=== PATIENT | female | born 1945 | race Caucasian/White ===

== ENCOUNTER 2022-05-02 10:42 | Emergency (ER) | payer MEDICARE, OTHER ==
[2022-05-02 10:49] VITALS: BP 150/84
--- NOTE | 2022-05-02 11:50 | ED Physician Documentation ---
PD HPI LOWER EXT INJURY - Stated complaint Stated Complaint: LT FOOT PX - Chief complaint Chief Complaint: Ext Problem - History obtained from History obtained from: Patient - Additional information Additional information: Pt comes to the ED with CC of sunburn on the dorsum of her L foot, now with "blisters". She states the sunburn happened 2 days ago, and she noticed the blisters yesterday. Today there seem to be more. No fevers or chills. Redness has not gotten more intense. She does notice it a little more on the medial aspect of her foot. No other complaints at this time. Review of Systems Ten Systems: 10 systems reviewed and negative Constitutional: reports: Reviewed and negative Eyes: reports: Reviewed and negative Ears: reports: Reviewed and negative Nose: reports: Reviewed and negative Throat: reports: Reviewed and negative Cardiac: reports: Reviewed and negative Respiratory: reports: Reviewed and negative GI: reports: Reviewed and negative : reports: Reviewed and negative Skin: reports: Rash, Lesions Musculoskeletal: reports: Reviewed and negative Neurologic: reports: Reviewed and negative Psychiatric: reports: Reviewed and negative Endocrine: reports: Reviewed and negative Immunocompromised: reports: Reviewed and negative PD PAST MEDICAL HISTORY - Present Medications Home Medications: Ambulatory Orders Medication Instructions Recorded Confirmed Sulfamethox/Trimeth 800/160 1 each PO BID #14 tablet 05/02/22 [Bactrim Ds 800/160] - Allergies Allergies/Adverse Reactions: Allergies Allergy/AdvReac Type Severity Reaction Status Date / Time Narcotics AdvReac Emesis Uncoded 05/02/22 10:49 PD ED PE NORMAL - Vitals Vital signs reviewed: Yes - General General: Alert and oriented X 3, No acute distress, Well developed/nourished - HEENT HEENT: Atraumatic, PERRL, EOMI, Moist mucous membranes - Neck Neck: Thyroid normal - Cardiac Cardiac: Strong equal pulses - Respiratory Respiratory: No respiratory distress - Derm Derm: Warm and dry, Other (very faint erythema L foot medial dorsum, with 2 small clusters of several pustules. One larger (1 cm diam) popped bulla. No induration, fluctuance, or edema. No streaking. Minimal tenderness.) - Extremities Extremities: No deformity - Neuro Neuro: Alert and oriented X 3 - Psych Psych: Normal mood, Normal affect Results - Vitals Vitals: Oxygen O2 Source Room air PD MEDICAL DECISION MAKING - ED course Complexity details: considered differential, d/w patient ED course: I d/w pt that the area does not look distinctly infected. She does have definite pustules over the dorsum of her foot, and if this pustular outbreak worsens, she may need antibiotic treatment, but I have discussed with her that this is not indicated now. I have outlined the signs of infection with her, and have given her a prescription for abx to be filled only if these signs develop. We have discussed the usual indications for return. Departure - Departure Disposition: 01 Home, Self Care Clinical Impression: Pustule, Sunburn, second degree Condition: Stable Instructions: ED Burn D 2nd Follow-Up: Chicho Galvez MD [Physician No Access] - Prescriptions: Sulfamethox/Trimeth 800/160 [Bactrim Ds 800/160] 1 each PO BID #14 tablet Comments: At this point in time, you have 1 blister over the sunburn area that appears to have drained, as expected. However, the tiny bumps that are left appear to be pustules, not blisters, which contain little bits of pus like pimples. There is some mild redness and a small area around this, which could be due to the sunburn. It does not appear distinctly infected, and the tissue is very soft and is not swollen, both of which Argue against the possibility of infection. However, given that you have recently had a hip replacement, we will give you a prescription for antibiotics just in case it does seem that the redness Is spreading or that the area is becoming swollen and firm. If you notice these developments, you should get the antibiotics filled and begin taking them. Otherwise, you may try hot Salt water soaks which will encourage expression of pus from the tiny, pimple-like lesions. Please follow-up with your orthopedist as planned. Some recommendations for more local primary care physicians have been given above. Discharge Date/Time: 05/02/22 11:59
== END 2022-05-02 11:59 | disposition home or self-care (01) ==
LOC: ED 10:42
DX: L08.9 Local infection of the skin and subcutaneous tissue, unspecified (principal); L55.1 Sunburn of second degree
CPT/HCPCS: 99282; 99283

== ENCOUNTER 2022-07-30 22:00 | Outpatient (CLI) | payer MEDICARE, OTHER | END 2022-07-30 22:01 | disposition critical access hospital (66) | LOC: EMS 22:00 | DX: R53.1 Weakness (principal); R42 Dizziness and giddiness; F41.9 Anxiety disorder, unspecified | CPT/HCPCS: A0425; A0429 ==

== ENCOUNTER 2022-07-30 22:31 | Emergency (ER) | payer MEDICARE, OTHER ==
--- OUTSIDE RECORDS SUMMARY | 2022-07-30 22:37 | EXTERNAL MEDICAL SUMMARY RPT | Continuity of Care Document ---
:1945 Author Organization [facility] Address [address] [place] [address] Phone Allergies No information. Encounters No information. Functional Status No information. Immunizations No information. Medications date description facility +0000 atorvastatin [facility] [place] +0000 atorvastatin [facility] [place] Problems No information. Procedures date description facility +0000 Visit Code Hold [facility] [place] Results/Labs No information. Social History date description facility +0000 Never smoker [facility] [place] Vital Signs date measurement value units +0000 BMI BMI 22.76 kg/m2 [id number]+0000 BP_diastolic BP_diastolic 71 mm[H g] [id number]+0000 BP_systolic BP_systolic 135 mm[Hg] [id number]+0000 heart_rate heart_rate 58 /min [id number]+0000 height_metric height_metric 160.02 cm [id number]+0000 height_standard height_standard 63 in [id number]+0000 respiration_rate respiration_rate 16 /min [id number]+0000 temperature_metric temperature_metric 36.22 C [id number]+0000 temperature_standard temperature_standard 9 7.2 F [id number]+0000 weight_metric weight_metric 58.06 kg [id number]+0000 weight_standard weight_standard 128 lb
[2022-07-30 23:17] LABS: BASOPHILS % (AUTO) 0.7 %; EOSINOPHILS # (AUTO) 0.1 10^3/uL (0.0-0.7); EOSINOPHILS % (AUTO) 2.2 %; HCT - HEMATOCRIT 38.7 % (37.0-47.0); HGB - HEMOGLOBIN 12.6 g/dL (12.0-16.0); LYMPHOCYTES # (AUTO) 1.3 10^3/uL (1.5-3.5); LYMPHOCYTES % (AUTO) 21.7 %; MEAN CORPUSCULAR HGB CONC 32.6 g/dL (32.0-36.0); MEAN CORPUSCULAR VOLUME 92.1 fL (81.0-99.0); MEAN PLATELET VOLUME 11.3 fL (7.9-10.8); MONOCYTES # (AUTO) 0.5 10^3/uL (0.0-1.0); MONOCYTES % (AUTO) 8.3 %; NEUTROPHILS # (AUTO) 3.9 10^3/uL (1.5-6.6); NEUTROPHILS % (AUTO) 66.9 %; PLT - PLATELET COUNT 251 10^3/uL (130-450); WHITE BLOOD COUNT 5.9 x10^3/uL (4.8-10.8)
[2022-07-30 23:34] LABS: ALBUMIN 3.8 g/dL (3.2-5.5); ALBUMIN/GLOBULIN RATIO 1.5 (1.0-2.2); BILIRUBIN,TOTAL 0.5 mg/dL (0.2-1.0); CALCIUM 9.1 mg/dL (8.5-10.3); CREATININE 0.8 mg/dL (0.4-1.0); POTASSIUM 3.7 mmol/L (3.5-5.0); TOTAL PROTEIN 6.4 g/dL (6.7-8.2)
--- NOTE | 2022-07-30 23:54 | XRAY Report ---
PROCEDURE: Chest 1 View X-Ray INDICATIONS: Chest pain TECHNIQUE: One view of the chest was acquired. COMPARISON: None. FINDINGS: Surgical changes and devices: Postsurgical changes are demonstrated in the lower cervical spine. Lungs and pleura: No pleural effusions or pneumothorax. Lungs are clear. Mediastinum: Mediastinal contours appear normal. Heart size is normal. Bones and chest wall: No suspicious bony lesions. Overlying soft tissues appear unremarkable. IMPRESSION: 1. No acute cardiopulmonary disease. Reviewed by: Mykel Mujica MD on 07/30/2022 11:52 PM PDT Approved by: Mykel Mujica MD on 07/30/2022 11:52 PM PDT Station ID: [id number]
--- NOTE | 2022-07-31 00:10 | ED Physician Documentation ---
History of Present Illness - Stated complaint Stated Complaint: HIGH HEART RATE, DIZZY - Chief complaint Chief Complaint: Cardiac - History obtained from History obtained from: Patient - History of Present Illness Timing: Enter time (20:30) Pain level max: 0 Pain level now: 0 Improved by: no ameliorating factors Worsened by: no exacerbating factors - Additonal information Additional information: c/o sudden onset rapid palpitations at approximately 8:30 PM tonight while at home in bed, awake and reading. Denies h/o similar symptoms. Palpitations were associated with dizziness (but does not describe a vertigo component) and generalized weakness. Did not feel like she was going to pass out. Denies chest pain, dyspnea. She feels much improved by the time of this H+P. Review of Systems Constitutional: reports: Reviewed and negative Cardiac: reports: Palpitations. denies: Chest pain / pressure Respiratory: denies: Dyspnea, Cough GI: reports: Reviewed and negative Neurologic: reports: Generalized weakness. denies: Focal weakness, Numbness, Headache PD PAST MEDICAL HISTORY - Past Medical History Past Medical History: Yes Psych: Anxiety, Panic attacks - Past Surgical History Past Surgical History: Yes Ortho: Hip replacement - Present Medications Home Medications: Ambulatory Orders Medication Instructions Recorded Confirmed Sulfamethox/Trimeth 800/160 1 each PO BID #14 tablet 05/02/22 [Bactrim Ds 800/160] - Allergies Allergies/Adverse Reactions: Allergies Allergy/AdvReac Type Severity Reaction Status Date / Time Narcotics AdvReac Emesis Uncoded 07/30/22 22:38 - Social History Does the pt smoke?: No Smoking Status: Never smoker PD ED PE NORMAL - Vitals Vital signs reviewed: Yes - General General: Alert and oriented X 3, No acute distress, Well developed/nourished - Cardiac Cardiac: RRR, No murmur - Respiratory Respiratory: No respiratory distress, Clear bilaterally - Abdomen Abdomen: Soft, Non tender - Derm Derm: Normal color, Warm and dry - Extremities Extremities: No edema Results - Vitals Vitals: Oxygen O2 Source Room air - EKG (time done) No standard instances Rate: Rate (enter#) (77) Rhythm: NSR Elk: Normal Intervals: Normal DC Ischemia: Normal ST segments - Labs Labs: Laboratory Tests 07/30/22 07/30/22 07/30/22 23:06 23:06 23:06 WBC 5.9 RBC 4.20 Hgb 12.6 Hct 38.7 MCV 92.1 MCH 30.0 MCHC 32.6 RDW 14.0 Plt Count 251 MPV 11.3 H Neut # (Auto) 3.9 Lymph # (Auto) 1.3 L [place] # (Auto) 0.5 Eos # (Auto) 0.1 Baso # (Auto) 0.0 Absolute Nucleated RBC 0.00 Nucleated RBC % 0.0 Sodium 138 Potassium 3.7 Chloride 104 Carbon Dioxide 27 Anion Gap 7.0 BUN 32 H Creatinine 0.8 Estimated GFR (MDRD) 70 L Glucose 156 H Calcium 9.1 Total Bilirubin 0.5 AST 21 ALT 17 Alkaline Phosphatase 68 Troponin I High Sens 6.1 Total Protein 6.4 L Albumin 3.8 Globulin 2.6 Albumin/Globulin Ratio 1.5 Lipase 37 - Rads (name of study) chest xray Radiology: Prelim report reviewed, See rad report PD MEDICAL DECISION MAKING - ED course Complexity details: reviewed results, re-evaluated patient, considered differential, d/w patient ED course: palpitations with dizziness and generalized weakness, symptoms nearly resolved by the time of this evaluation and on reevaluation she is asymptomatic. Unrema rkable tests including EKG, cxr, blood tests with hs-cTn. Etiology of symptoms is not apparent at this time. Results reviewed with patient, advised to follow up with primary care provider for reevaluation and consideration of further testing, return precautions discussed Departure - Departure Disposition: 01 Home, Self Care Clinical Impression: Palpitations Condition: Good Instructions: ED Palpitations Comments: The results of tonight's tests are unremarkable. The cause of your symptoms is not apparent at this time, but further testing in the ER or the hospital is not indicated; it is safe and appropriate to discharge you home. If your symptoms reoccur, you should return to the emergency department. Otherwise, follow up with your primary care provider, next available appointment for reevaluation Discharge Date/Time: 07/31/22 01:04
[2022-07-31 00:45] VITALS: BP 113/57
== END 2022-07-31 01:04 | disposition home or self-care (01) ==
LOC: EDUNIT# → ED 22:31
DX: R00.2 Palpitations (principal); R42 Dizziness and giddiness; R53.1 Weakness
CPT/HCPCS: 36415; 80053; 83690; 84484; 85025; 93005; 99283; 99284

== ENCOUNTER 2022-10-08 11:46 | Emergency (ER) | payer MEDICARE, OTHER ==
[2022-10-08 11:57] VITALS: BP 164/77
[2022-10-08 12:21] LABS: BASOPHILS % (AUTO) 0.4 %; EOSINOPHILS # (AUTO) 0.1 10^3/uL (0.0-0.7); EOSINOPHILS % (AUTO) 1.2 %; HCT - HEMATOCRIT 44.3 % (37.0-47.0); HGB - HEMOGLOBIN 13.9 g/dL (12.0-16.0); LYMPHOCYTES # (AUTO) 1.2 10^3/uL (1.5-3.5); LYMPHOCYTES % (AUTO) 15.6 %; MEAN CORPUSCULAR HEMOGLOBIN 29.1 pg (27.0-31.0); MEAN CORPUSCULAR HGB CONC 31.4 g/dL (32.0-36.0); MEAN CORPUSCULAR VOLUME 92.7 fL (81.0-99.0); MEAN PLATELET VOLUME 11.5 fL (7.9-10.8); MONOCYTES # (AUTO) 0.4 10^3/uL (0.0-1.0); MONOCYTES % (AUTO) 5.2 %; NEUTROPHILS # (AUTO) 5.8 10^3/uL (1.5-6.6); NEUTROPHILS % (AUTO) 77.5 %; PLT - PLATELET COUNT 260 10^3/uL (130-450); RED BLOOD COUNT 4.78 10^6/uL (4.20-5.40); RED CELL DISTRIBUTION WIDTH 13.8 % (12.0-15.0); WHITE BLOOD COUNT 7.4 x10^3/uL (4.8-10.8)
[2022-10-08 12:34] LABS: ALBUMIN 4.1 g/dL (3.2-5.5); ALBUMIN/GLOBULIN RATIO 1.4 (1.0-2.2); BILIRUBIN,TOTAL 0.4 mg/dL (0.2-1.0); CALCIUM 9.5 mg/dL (8.5-10.3); CREATININE 0.8 mg/dL (0.4-1.0); POTASSIUM 3.9 mmol/L (3.5-5.0); TOTAL PROTEIN 7.1 g/dL (6.7-8.2)
[2022-10-08] MEDS ORDERED: DEXAMETHASONE 10 MG/ML VIAL IVP STA (13:13)
[2022-10-08] MEDS ORDERED: SODIUM CHLORIDE 0.9% 1,000 ML IV STA (13:13)
[2022-10-08] MEDS ORDERED: iohexoL-300 100 ML VIAL ONE (13:54)
--- NOTE | 2022-10-08 15:22 | CT Report ---
PROCEDURE: CERVICAL SPINE WO INDICATIONS: RADICULOPATHY S/P SURGERY SPINAL STENOSIS TECHNIQUE: Noncontrast 3 mm thick sections acquired from the skull base to the T4 level. Sagittal and coronal r eformats were then constructed. For radiation dose reduction, the following was used: automated exp osure control, adjustment of mA and/or kV according to patient size. COMPARISON: None. FINDINGS: Image quality: Diagnostic. Beam hardening artifacts from cervical spine surgical hardware are seen. Bones: Patient is status post fusion of cervical spine with intervertebral spacer placement at C3-4 a nd C4-5 levels and anterior fusion hardware at C5-C7 levels. There is straightening of normal cervica l lordosis. No acute fracture or dislocation. No evidence of hardware loosening or failure. Partial b kecia union from C3 through C7 levels are seen. No suspicious bony lesion. C2-3: Right lateral dorsal disc osteophyte complex formation and bilateral facet hypertrophic changes are noted causing right worse than left bilateral neural foraminal narrowing. C3-4: Bilateral facet arthrosis is seen. No significant canal stenosis or neural foraminal narrowing. C4-5: Right posterior disc osteophyte complex formation and bilateral facet hypertrophic changes are noted causing mild central canal stenosis and moderate to severe right-sided neural foraminal narrowi ng. C5-6: Bilateral facet arthrosis and broad-based disc osteophyte complex formation causing moderate ce ntral canal stenosis and left worse in right bilateral neural foraminal narrowing. C6-7: Broad-based disc osteophyte complex formation and bilateral facet arthrosis with moderate centr al canal stenosis and moderate to severe bilateral neural foraminal narrowing. C7-T1: Unremarkable. Soft tissues: Prevertebral soft tissues are normal in thickness. No paravertebral hematomas. No ap ical pneumothoraces. IMPRESSION: 1. Prior fusion of cervical spine from C3 through C7 levels. No acute fracture or dislocation. No arnoldo dence of hardware complication. 2. Dorsal disc osteophyte complex formation and bilateral facet hypertrophic changes throughout cervi lorrie spine causing [id number]-[id number]-[id number] central canal stenosis and moderate to severe bilateral neural for aminal narrowing as above. Reviewed by: Roman Amaro MD on 10/08/2022 3:20 PM PST Approved by: Roman Amaro MD on 10/08/2022 3:20 PM PST Station ID: [id number]
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
== END 2022-10-08 17:48 | disposition home or self-care (01) ==
LOC: ED 11:46
DX: M54.12 Radiculopathy, cervical region (principal); F41.9 Anxiety disorder, unspecified; F43.9 Reaction to severe stress, unspecified
CPT/HCPCS: 36415; 72125; 80053; 83690; 85025; 96374; 99284; G0426; Q3014; 90834